=== PATIENT | male | born 1995 | race Caucasian/White ===

== ENCOUNTER 2023-01-27 02:17 | Emergency (ER) | payer MEDICAID, OTHER ==
[~2023-01-27] VITALS: Ht 177.8 cm; Wt 95.3 kg
--- NOTE | 2023-01-27 02:34 | NUR ---
COVID ANTIGEN SWAB COLLECTED AND SENT TO LAB
--- NOTE | 2023-01-27 02:34 | NUR ---
URINE COLLECTED AND SENT TO LAB
--- NOTE | 2023-01-27 02:35 | NUR ---
[id number] FROM 04/22 C/O SI. PLAN TO HARM SELF WITH BROKEN BOTTLE. REQUESTING VOLUNTARY ADMISSION TO [facility]. ADMITS TO COCAINE & ALCOHOL. PT A/OX3. TOLERATING R/A WELL WITH NO RESP DISTRESS. AMB WITH STEADY GAIT. PT IN GOWN, BELONGINGS IN LOCKER, AND WANDED BY SECURITY. SAFETY MEASURES IN PLACE
--- NOTE | 2023-01-27 02:39 | NUR ---
UI LEAD DEVELOPER AT PT'S BEDSIDE
[2023-01-27 03:02] LABS: CALCIUM, SERUM 9.2 mg/dL (8.5-10.1); CREATININE 0.8 mg/dL (0.6-1.3); POTASSIUM 3.6 mmol/L (3.5-5.1)
[2023-01-27 03:05] LABS: BILIRUBIN,URINE NEGATIVE (NEGATIVE); COLOR,URINE YELLOW (YELLOW); LEUKOCYTE ESTERASE ,URINE NEGATIVE (NEGATIVE); NITRITE, URINE NEGATIVE (NEGATIVE); PROTEIN,URINE NEGATIVE (NEGATIVE); UGLUCOSE NEGATIVE (NEGATIVE); UROBILINOGEN,URINE 0.2 EU/dL (0.2)
[2023-01-27 03:07] LABS: BASOPHILS % (AUTO) 0.4 % (0.0-2.0); EOSINOPHILS % (AUTO) 0.1 % (0.0-6.0); HEMATOCRIT 46 % (39-51); HEMOGLOBIN 15.5 g/dL (13.5-17.5); LYMPHOCYTES # (AUTO) 1.4 K/uL (0.8-4.8); LYMPHOCYTES % (AUTO) 22.6 % (20.0-44.0); MEAN CORPUSCULAR HGB CONC 34 g/dl (31.0-36.0); MEAN CORPUSCULAR VOLUME 93 fL (80-96); MONOCYTES # (AUTO) 0.3 K/uL (0.1-1.30); MONOCYTES % (AUTO) 5.1 % (2.0-12.0); NEUTROPHILS # (AUTO) 4.6 K/uL (1.8-8.9); NEUTROPHILS % (AUTO) 71.8 % (43.0-81.0); PLATELET COUNT (AUTO) 190 K/uL (150-450); WHITE BLOOD COUNT (AUTO) 6.4 K/uL (4.3-11.0)
[2023-01-27 03:09] LABS: ALBUMIN 4.6 g/dL (3.4-5.0); BILIRUBIN,DIRECT 0.1 mg/dL (0.0-0.2); BILIRUBIN,TOTAL 0.3 mg/dL (0.2-1.0)
--- NOTE | 2023-01-27 03:11 | NUR ---
Note [email or web address] in EDM - 01/27/23 at 0312 by SUSAN [id number] FROM 04/22 C/O SI. PLAN TO HARM SELF WITH BROKEN BOTTLE. REQUESTING VOLUNTARY ADMISSION TO [facility]. ADMITS TO COCAINE & ALCOHOL. PT A/OX3. TOLERATING R/A WELL WITH NO RESP DISTRESS. AMB WITH STEADY GAIT. PT IN GOWN, BELONGINGS IN LOCKER, AND WANDED BY SECURITY. SAFETY MEASURES IN PLACE
[2023-01-27 03:24] LABS: BACTERIA,URINE Rare /HPF (None Seen); SQUAMOUS EPITHELIAL CELL,UR Few /HPF (None Seen); WBC,URINE 0-2 /HPF (0-3)
--- NOTE | 2023-01-27 07:21 | NUR ---
SENT [facility] PT FACESHEET FOR UPDATE ON ADMISSION AWAITING A CALL BACK WITH ACCEPTANCE INFO
--- NOTE | 2023-01-27 07:32 | NUR ---
RESENT PT CLINICALS TO [facility] AT [facility]
--- NOTE | 2023-01-27 08:23 | NUR ---
PATIENT WOULD LIKE TO BE DISCHARGE, HE NOW DENIES ANY SI AND HI AND HAS NO PLAN OF HURTING HIMSELF .
--- NOTE | 2023-01-27 08:26 | NUR ---
Patient discharged to home in stable condition. Written and verbal after care instructions given. Patient verbalizes understanding of instruction.
[2023-01-27 08:27] VITALS: BP 126/88
== END 2023-01-27 08:28 | disposition home or self-care (01) ==
LOC: ER 02:19
DX: R45.851 Suicidal ideations (principal); F19.10 Other psychoactive substance abuse, uncomplicated; Z20.822 Contact with and (suspected) exposure to COVID-19
CPT/HCPCS: 99285; 85025; 80048; 80076; 81001; 36415; 87426; 80143; 80320; 80307; C9803; G0480